=== PATIENT | female | born 1955 | race Caucasian/White ===

== ENCOUNTER 2018-08-03 00:59 | Day surgery (SDC) | payer OTHER ==
[~2018-08-03] VITALS: Ht 157.5 cm; Wt 70.3 kg
[~2018-08-03 00:59] MED LIST: CALC-1 PO; CALC-547 PO; CHOL400T29 PO; ESTR42.59 VG; ESTROGEN CREAM; FLUT16SP19 NS; FLUT16SP20 NS; FOLI-68 PO; MAGN100T PO; MELO-207 PO; METH-541 PO; MULT-1335 PO; MULT-67 PO; NAP250 PO
[2018-08-03 06:06] VITALS: BP 130/79
[2018-08-03] MEDS ORDERED: LIDOCAINE/SOD BICARB 8.4% SYR ID ONE (06:30)
[2018-08-03] MEDS ORDERED: NORMOSOL R SOLN(*) 1000 ML BAG 1,000 ML IV PRN (06:30)
[2018-08-03] MEDS ORDERED: PROPOFOL EMUL(*) 10MG/ML 20 ML 40 ML ONE (06:51)
[2018-08-03 07:50] VITALS: BP 94/51
--- NOTE | 2018-08-03 07:54 | Short(Outpt) Discharge Summary ---
Discharge Summary Reason for Hosp/Final Diag: (1) Encounter for screening colonoscopy Hospital Course & Plan: 62 yo f presented for screening colonoscopy. she tolerated the procedure well and there were no complications. repeat colonoscopy in 10 yrs. she will be discharged home when criteria met. Discharge Instructions Home Meds Reported Medications Fluticasone Prop 50 Mcg Ns (FLONASE 50 MCG NS) 16 Gm [place].susp, 2 SPRAYS NS HS, BOT 07/20/18 Magnesium Amino Acid Chelate (MAGNESIUM) 100 Mg Tablet, 1 TAB PO QDAY 06/15/18 Cholecalciferol (Vitamin D3) (VITAMIN D3) 400 Unit Tablet, 2 TAB PO QDAY 06/15/18 Folic Acid (FOLIC ACID) 1 Mg Tablet, 1 TAB PO QDAY, TAB 06/15/18 Meloxicam (MELOXICAM) 15 Mg Tablet, 1 TAB PO 3XW 06/15/18 Methotrexate Sodium (TREXALL) 10 Mg Tablet, 1 TAB PO QWK ONCE A WEEK 06/15/18 Estradiol (ESTRACE) Unknown Strength Cream.appl, VG 2XW 06/15/18 Multivitamin/Iron/Folic Acid (Centrum Adults Tablet) 18 Mg Iron-400 Mcg Tablet, 1 TAB PO QDAY 06/15/18 Calcium Carbonate/Vitamin D3 (CALTRATE 600 + D TABLET) 1 Each Tablet, 1 TAB PO BID 06/15/18 Special Instructions: repeat colonoscopy in 10 yrs VERONICA MCKEON Aug 03, 2018 07:54
[2018-08-03 08:14] VITALS: BP 93/58
[2018-08-03 08:31] VITALS: BP 127/71
[2018-08-03 08:33] VITALS: BP 113/78
== END 2018-08-03 08:45 | disposition home or self-care (01) ==
LOC: OR 00:59
PROVIDERS: ATTEND Surgery
DX: Z12.11 Encounter for screening for malignant neoplasm of colon (principal); K59.09 Other constipation
CPT/HCPCS: 00812; 45378; J2704